=== PATIENT | male | born 1980 | race American Indian/Alaskan Native ===

== ENCOUNTER 2017-04-19 11:39 | Emergency (ER) | payer MEDICAID ==
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
[2017-04-19] MEDS ORDERED: NACL 0.9% 1000 ML 1,000 ML IV ONE (12:12)
[2017-04-19 13:08] LABS: Basophils % (Auto) 0.4 % (0.0-1.8); Eosinophils # (Auto) 0.2 K/mm3 (0.0-0.4); Eosinophils % (Auto) 1.7 % (0.0-4.3); Hematocrit 41.2 % (35.5-45.6); Hemoglobin 13.6 gm/dl (11.8-15.2); Lymphocytes # (Auto) 1.6 K/mm3 (1.2-5.4); Lymphocytes % (Auto) 17.1 % (13.4-35.0); Mean Corpuscular HGB Conc 33 % (32-34); Mean Corpuscular Hemoglobin 27 pg (28-32); Mean Corpuscular Volume 83 fl (84-94); Monocytes # (Auto) 0.6 K/mm3 (0.0-0.8); Monocytes % (Auto) 6.1 % (0.0-7.3); Platelet Count 144 K/mm3 (140-440); Red Blood Count 4.99 M/mm3 (3.65-5.03); Red Cell Distribution Width 15.1 % (13.2-15.2)
[2017-04-19 13:15] LABS: Alanine Aminotransferase 10 units/L (7-56); BUN/Creatinine Ratio 14; Blood Urea Nitrogen 10 mg/dL (9-20); Calcium 9.1 mg/dL (8.4-10.2); Hemolysis Index 11
[2017-04-19 13:19] LABS: INR 0.97 (0.87-1.13)
--- NOTE | 2017-04-19 13:29 | XRay Report ---
Right femur 2 views: History: Lower extremity injury. Findings: Intratrabecular alignment linear radiolucency at the intertrochanteric region of right femur probably suggestive fracture. No periosteal reaction in the diaphysis. No fracture of the diaphysis. Impression: Hairline Intratrabecular fracture intertrochanteric region.
--- NOTE | 2017-04-19 13:30 | XRay Report ---
Right hip 2 views: Findings: The hip joint appears unremarkable. Intratrebecular hairline fracture at the intertrochanteric region right femur. Suspicion of joint effusion. Impression: Findings as described.
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
[2017-04-19 16:01] VITALS: BP 112/62
== END 2017-04-19 18:27 | disposition other institution (70) ==
LOC: ED 11:39
DX: S02.82XA Fracture of other specified skull and facial bones, left side, initial encounter for closed fracture (principal); M25.551 Pain in right hip; Z59.0 Homelessness; F17.200 Nicotine dependence, unspecified, uncomplicated; F20.9 Schizophrenia, unspecified; W03.XXXA Other fall on same level due to collision with another person, initial encounter; Y93.89 Activity, other specified; Y92.89 Other specified places as the place of occurrence of the external cause; Y99.8 Other external cause status
CPT/HCPCS: 36415; 70450; 70486; 72192; 73502; 73552; 80053; 85025; 85610; 96360; 99285; J7030

== ENCOUNTER 2019-01-28 01:47 | Emergency (ER) | payer SELFPAY ==
[2019-01-28 05:12] VITALS: BP 151/90
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
== END 2019-01-28 08:22 | disposition home or self-care (01) ==
LOC: ED 01:47
DX: R07.89 Other chest pain (principal); Z59.0 Homelessness
CPT/HCPCS: 93005; 93010

== ENCOUNTER 2020-09-25 21:24 | Emergency (ER) | payer MEDICAID | END 2020-09-25 22:00 | disposition left against medical advice (07) | LOC: ED 21:24 → EDBD 21:24 → ED 22:00 | DX: R10.9 Unspecified abdominal pain (principal); Z53.21 Procedure and treatment not carried out due to patient leaving prior to being seen by health care provider ==

== ENCOUNTER 2020-09-26 03:57 | Emergency (ER) | payer MEDICAID ==
[2020-09-26 05:34] LABS: Bilirubin,Urine NEG (Negative); Blood,Urine NEG (Negative); Color,Urine Yellow (Yellow); Mucus,Urine 1+ /HPF; Protein,Urine <15 mg/dL mg/dL (Negative); Sperm,Urine 3+ /HPF (NP); Urobilinogen,Urine < 2.0 mg/dL (<2.0)
[2020-09-26 05:39] LABS: Alanine Aminotransferase 23 units/L (7-56); Albumin 4.4 g/dL (3.9-5); BUN/Creatinine Ratio 8; Blood Urea Nitrogen 10 mg/dL (9-20); Calcium 9.5 mg/dL (8.4-10.2); Hemolysis Index 0
[2020-09-26 05:40] LABS: Basophils % (Auto) 0.2 % (0.0-1.8); Eosinophils % (Auto) 0.1 % (0.0-4.3); Hematocrit 40.9 % (35.5-45.6); Hemoglobin 13.6 gm/dl (11.8-15.2); Lymphocytes # (Auto) 1.7 K/mm3 (1.2-5.4); Mean Corpuscular HGB Conc 33 % (32-34); Mean Corpuscular Volume 87 fl (84-94); Monocytes # (Auto) 0.5 K/mm3 (0.0-0.8); Monocytes % (Auto) 5.7 % (0.0-7.3); Platelet Count 471 K/mm3 (140-440); Red Blood Count 4.68 M/mm3 (3.65-5.03); Red Cell Distribution Width 14.3 % (13.2-15.2)
[2020-09-26 05:51] LABS: Amphetamine Screen,Urine PRESUMPTIVE NEGATIVE; Benzodiazepines Screen,Urine PRESUMPTIVE NEGATIVE; Cannabinoid Screen,Urine PRESUMPTIVE POSITIVE; Cocaine Screen,Urine PRESUMPTIVE NEGATIVE; Methadone Screen,Urine PRESUMPTIVE NEGATIVE; Opiate Screen,Urine PRESUMPTIVE NEGATIVE
--- NOTE | 2020-09-26 07:20 | Emergency Department Report ---
ED Psych HPI - General Chief Complaint: Abdominal Pain Stated Complaint: ABD PAIN Time Seen by Provider: 09/26/20 06:32 Source: patient Mode of arrival: Ambulatory - History of Present Illness Initial Comments: 39-year-old male, history of schizophrenia, presents to ED with complaint of abdominal pain. Patient states, " I'm an alcoholic and I overdosed." Patient states he took 10 pills of his olanzapine yesterday at around 5 PM. He endorses SI and reports auditory hallucinations telling him to kill himself. MD Complaint: suicidal ideation -: unknown Associated Psychiatric Symptoms: suicidal ideation, auditory hallucinations Quality: constant Improves With: none Worsens With: none Associated Symptoms: other (Abdominal pain) Treatments Prior to Arrival: none If Self Harm: intentional overdose Details of Plan: Patient reports he took 10 pills of olanzapine - Related Data Allergies Allergy/AdvReac Type Severity Reaction Status Date / Time No Known Allergies Allergy Verified 04/19/17 12:11 ED Review of Systems ROS: Stated complaint: ABD PAIN Other details as noted in HPI Comment: All other systems reviewed and negative Gastrointestinal: abdominal pain. denies: nausea, vomiting Psychiatric: auditory hallucinations, suicidal thoughts ED Past Medical Hx - Past Medical History Previous Medical History?: Yes Hx Psychiatric Treatment: Yes (Schizophrenia) - Social History Smoking Status: Never Smoker ED Physical Exam - General Limitations: No Limitations General appearance: alert, in no apparent distress - Head Head exam: Present: atraumatic, normocephalic - Eye Eye exam: Present: normal appearance, EOMI - ENT ENT exam: Present: mucous membranes moist - Neck Neck exam: Present: normal inspection - Respiratory Respiratory exam: Present: normal lung sounds bilaterally. Absent: respiratory distress - Cardiovascular Cardiovascular Exam: Present: regular rate, normal rhythm - GI/Abdominal GI/Abdominal exam: Present: soft. Absent: distended, tenderness - Extremities Exam Extremities exam: Present: normal inspection - Neurological Exam Neurological exam: Present: alert, oriented X3 - Psychiatric Psychiatric exam: Present: suicidal ideation - Skin Skin exam: Present: warm, dry, intact, normal color ED Course Vital Signs 09/26/20 09/26/20 09/26/20 04:21 05:31 09:17 Temperature 97.7 F 98.6 F Pulse Rate 83 76 Respiratory 18 20 20 Rate Blood Pressure 121/75 Blood Pressure 135/92 [Right] O2 Sat by Pulse 100 98 100 Oximetry - Reevaluation(s) Reevaluation #1: 09/26/20 07:32 Poison control was contacted by nurse. They recommend 6 to 8-hour observation following ingestion. We are currently more than 12 hours out from patient's ingestion time. He is awake and alert, oriented x3. Patient is medically clear. Reevaluation #2: 09/26/20 11:48 Patient has been seen, evaluated, and cleared by psychiatry team. No inpatient admission recommended at this time. Outpatient resources given. ED Medical Decision Making - Lab Data Result diagrams: 09/26/20 04:31 09/26/20 04:31 - Medical Decision Making 39-year-old male, history of schizophrenia, presents to ED reporting an overdose on olanzapine 5 PM on yesterday. Patient is A&O x3. Vital signs are stable. Labs are unremarkable. Poison control has been called regarding his possible overdose. They recommend 6 to 8-hour observation following ingestion. Patient is now more than 12 hours from his supposed ingestion. He is medically clear for mental health evaluation. Will dispo per psych. Critical care attestation.: If time is entered above; I have spent that time in minutes in the direct care of this critically ill patient, excluding procedure time. ED Disposition Clinical Impression: Schizophrenia Disposition: DC-01 TO HOME OR SELFCARE Is pt being admited?: No Condition: Stable Instructions: Managing Schizophrenia Additional Instructions: OUTPATIENT MENTAL HEALTH RESOURCES [facility], [facility] Martha Marcelo MD: [address], [address] [place] [address] [place] [address] [place] [facility]: [facility] [address] [place] [address] [place] [address] [phone] [facility]: [facility] Healthcare: [address] [facility] [address] [place] [address] [place] [address] [facility] [id number] [facility]: Jhony Harrison MD: [address] [facility] [address] [facility] [id number] [facility]: [address] [place], [place] [id number] [phone] [place] CRISIS AND ACCESS LINE: SUBSTANCE ABUSE PROGRAMS: [facility]: Location: [place], [place] [facility] Address: [address] [place] [address] [facility]: Address: [address] [place] [address] [facility]: Address: [address] [place] [address] [facility]: Address: [address] [place] [address] [facility] Address: [address] [place] [address]. Please contact above numbers to attempt placement into free based program. Medicaid Programs: [facility]: Address: [address] [place] [address] [facility]: Address: [address] [place] [address] Referrals: PRIMARY CAREMD [Primary Care Provider] - 3-5 Days Time of Disposition: 11:48
[2020-09-26 09:18] VITALS: BP 135/92
--- NOTE | 2020-09-26 10:29 | Consultation ---
History of Present Illness - Reason for Consult Consult date: 09/26/20 Reason for consult: possible OD - History of Present Psychiatric Illness Per ER Note: 39-year-old male, history of schizophrenia, presents to ED with complaint of abdominal pain. Patient states, " I'm an alcoholic and I overdosed." Patient states he took 10 pills of his olanzapine yesterday at around 5 PM. He endorses SI and reports auditory hallucinations telling him to kill himself. Hermes Barrera is a 39y/o male patient whom I evaluated today for possible overdose. During my evaluation of the patient today, he is calm and cooperative. He is a/ o x 2. He says he overdosed on his medications. When asking the patient if he was trying to kill himself or do self harm, he says "no, I was only trying to get high." I asked him if he's feeling suicidal now at all. He replies "no I'm not suicidal now and yesterday either. I was trying to get high." The patient denies homicidal thoughts. He also denies hallucinations of any kind. He denies any illicit drug use outside of THC. He says "I feel alright" when asked. PAST PSYCHIATRIC HISTORY: Diagnoses: Schizophrenia Suicide attempts or Self-harm behavior: Denies Prior psychiatric hospitalizations: Yes Substance Abuse history: THC Previous psychiatric medications tried: Olanzapine Outpatient treatment: Yes PAST MEDICAL HISTORY: None reported or document Family Psychiatric History: None reported or documented SOCIAL HISTORY Marital Status: Living Arrangements: "with uncle them" Employment Status: Disabled Access to guns/weapons: denies Education: History of Abuse: denies Legal History: denies REVIEW OF SYSTEMS Constitutional: Negative for weight loss ENT: Negative for stridor Respiratory: Negative for cough or hemoptysis All other systems reviewed and are negative MENTAL STATUS EXAMINATION General Appearance and Behavior: Age appropriate, wearing appropriate clothes, cooperative polite with questioning, good eye contact, cooperative Cooperation: cooperative Psychomotor Behavior: Psychomotor normal Mood: "I feel alright" Affect and affective range: congruent with stated mood Thought Process: goal directed Thought Content: None Speech: Normal volume, Regular rate and rhythm Suicidal Ideation: Denies Homicidal Ideation: Denies hallucination: Denies Delusions: None elicited Impulse Control: Limited Insight and Judgment: Limited Memory: Intact Attention: Divided Orientation: Alert and oriented Diagnoses: Hx of Schizophrenia Treatment Plan No scripts given at this time Sitter: Per primary Medical: Per primary Disposition: Do not recommend acute psychiatric inpatient treatment Clinical Services Professional to give appropriate outpatient resources Clinical Services Professional to also further discuss and document safety plan The patient to follow up with outpatient psych in 7 to 14 days upon discharge Will sign off. Thanks Case staffed with Dr. Orozco. Medications and Allergies Allergies Allergy/AdvReac Type Severity Reaction Status Date / Time No Known Allergies Allergy Verified 04/19/17 12:11 Mental Status Exam - Vital signs Last Vital Signs Temp 98.6 F 09/26/20 09:17 Pulse 76 09/26/20 09:17 Resp 20 09/26/20 09:17 BP 135/92 09/26/20 09:17 Pulse Ox 100 09/26/20 09:17 Results Result Diagrams: 09/26/20 04:31 09/26/20 04:31 Abnormal lab results 09/26/20 09/26/20 09/26/20 Range/Units 04:31 05:49 05:49 Plt Count 471 H (140-440) K/mm3 Seg Neutrophils % 73.0 H (40.0-70.0) % Urine WBC (Auto) (0.0-6.0) /HPF Salicylates < 0.3 L (2.8-20.0) mg/dL Acetaminophen 5.0 L (10.0-30.0) ug/mL 09/26/20 Range/Units Unknown Plt Count (140-440) K/mm3 Seg Neutrophils % (40.0-70.0) % Urine WBC (Auto) 8.0 H (0.0-6.0) /HPF Salicylates (2.8-20.0) mg/dL Acetaminophen (10.0-30.0) ug/mL All other labs normal.
== END 2020-09-26 12:22 | disposition home or self-care (01) ==
LOC: EDBD → ED 03:57 → EEVIPCON 03:57 → ED 12:22
DX: F20.9 Schizophrenia, unspecified (principal); Z20.822 Contact with and (suspected) exposure to COVID-19
CPT/HCPCS: 36415; 80053; 80307; 81001; 83690; 85025; 99284; U0003; 80320; G0480